=== PATIENT | female | born 1975 | race Caucasian/White ===

== ENCOUNTER 2023-12-06 12:42 | Emergency (ER) | payer BC ==
[~2023-12-06] VITALS: Ht 177.8 cm; Wt 109.0 kg
[2023-12-06 12:45] VITALS: O2SAT 98
[2023-12-06] MEDS ORDERED: METOCLOPRAMIDE HCL 10MG/2ML VIAL IV ONE ×2 (13:15→13:45)
[2023-12-06] MEDS ORDERED: SODIUM CHLORIDE 0.9% 1,000 ML IV ONE (13:15)
[2023-12-06] MEDS: AMLODIPINE 5MG TABLET PO ONE (13:22)
[2023-12-06 13:27] LABS: BASOPHILS % 0.6 % (0.0-2.0); EOSINOPHILS % 1.7 % (0.0-5.0); HEMATOCRIT. 35.4 % (36.0-48.0); HEMOGLOBIN. 11.6 g/dL (12.0-16.0); LYMPHOCYTES % 28.8 % (20.0-50.0); MEAN CORPUSCULAR HEMOGLOBIN 27.1 pg (28.0-32.0); MEAN CORPUSCULAR HGB CONC 32.9 g/dL (31.0-37.0); MEAN CORPUSCULAR VOLUME 82.3 fL (81.0-99.0); MEAN PLATELET VOLUME 7.5 fl (7.4-10.4); MONOCYTES % 8.2 % (2.0-8.0); NEUTROPHILS % 60.7 % (40.0-76.0); PLATELET 268 x1000/uL (130-400); WHITE BLOOD COUNT 5.6 x1000/uL (4.5-11.0)
[2023-12-06 13:42] LABS: ALANINE AMINOTRANSFERASE 21 IU/L (10-49); ALBUMIN 4.3 g/dL (3.2-4.8); ASPARTATE AMINOTRANSFERASE 22 IU/L (<34); BILIRUBIN TOTAL 0.4 mg/dL (0.1-1.0); CALCIUM 9.1 mg/dL (8.7-10.4); CARBON DIOXIDE 27 mEq/L (21-32); CHLORIDE 105 mEq/L (98-107); CREATININE 0.7 mg/dL (0.6-1.0); GLUCOSE 91 mg/dL (70-105); PROTEIN TOTAL 6.9 g/dL (6.0-8.3); SODIUM 137 mEq/L (136-145); UREA NITROGEN BLOOD 8 mg/dL (9-23)
[2023-12-06 13:43] LABS: HCG SCREEN NEGATIVE
[2023-12-06 13:46] LABS: INR 0.9; PROTHROMBIN TIME 10.2 sec (9.6-11.0)
[2023-12-06] MEDS: SODIUM CHLORIDE 0.9% 1,000 ML IV ONE (13:50)
[2023-12-06] MEDS: METOCLOPRAMIDE HCL 10MG/2ML VIAL IV ONE (13:58)
[2023-12-06] MEDS: KETOROLAC 15MG/ML VIAL IV ONE (13:58)
[2023-12-06 14:01] LABS: TROPONIN I HIGH SENSITIVITY < 4 ng/L (3.0-34)
[2023-12-06] MEDS: HYDRALAZINE 20MG/ML VIAL IV ONE (14:24)
[2023-12-06 14:58] LABS: CLARITY URINE CLEAR (CLEAR); COLOR URINE YELLOW (YELLOW); GLUCOSE URINE NEGATIVE (NEGATIVE); KETONES URINE NEGATIVE (NEGATIVE); LEUKOCYTE ESTERASE URINE NEGATIVE (NEGATIVE); NITRITE URINE NEGATIVE (NEGATIVE); OCCULT BLOOD URINE NEGATIVE (NEGATIVE); PH URINE 7.5 (4.5-8.0); PROTEIN URINE NEGATIVE (NEGATIVE); SPECIFIC GRAVITY URINE 1.006 (1.005-1.030); UROBILINOGEN URINE 0.2 E.U./dL (0.2-1.0)
[2023-12-06] MEDS ORDERED: AMLO5TAB4 MT (15:16)
[2023-12-06 16:08] VITALS: BP 162/81; PULSE 82; RESP 16; TEMP 98.3
== END 2023-12-06 16:13 | disposition home or self-care (01) ==
LOC: ER 13:14
DX: E11.9 Type 2 diabetes mellitus without complications (principal); I10 Essential (primary) hypertension; R51.9 Headache, unspecified
CPT/HCPCS: 80061; 80053; 81003; 83036; 84703; 83880; 83690; 84443; 85025; 85610; 84484; 36415; 71045; 93005; 96361; 96374; 96375; 99285; J0360; J1885; J7030; Z7610